=== PATIENT | male | born 1975 | race Hispanic/Latino ===

== ENCOUNTER 2016-10-26 07:26 | Emergency (ER) | payer OTHER ==
[2016-10-26 07:29] VITALS: BP 109/57; PULSE 95; RESP 18; TEMP 98.1; O2SAT 100
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
== END 2016-10-26 11:10 | disposition home or self-care (01) ==
LOC: H.ER 07:26
DX: S00.83XA Contusion of other part of head, initial encounter (principal); S20.229A Contusion of unspecified back wall of thorax, initial encounter; Y04.0XXA Assault by unarmed brawl or fight, initial encounter; Y92.89 Other specified places as the place of occurrence of the external cause